=== PATIENT | male | born 1965 | race Caucasian/White ===

== ENCOUNTER 2023-10-03 21:24 | Emergency (ER) | payer BC, SELFPAY ==
[2023-10-03 21:26] VITALS: BP 122/77; PULSE 77; RESP 17; TEMP 36.7; O2SAT 99; BMI 22.2
--- NOTE | 2023-10-03 21:28 | HMH.EDGENADL ---
Discharge Plan Disposition Patient Disposition: Home, Self-Care Condition: Good Referrals Follow up/Referrals: Jeff Valverde MD [Staff Physician] - See instructions Provider,MD Natalie [Primary Care Provider] - See instructions Activity Restrictions/Add. Instructions Additional Instructions/Restrictions: Call in the morning and make appointment with Dr. Valverde of general surgery for evaluation of your right inguinal hernia. Return to the ER for any worsening signs or symptoms. Clinical Impressions Clinical Impression: Inguinal hernia of right side without obstruction or gangrene Instructions Patient Instructions: DI for Acute Abdominal Pain Discharge ED Provider: Segundo Canada General Adult HPI <CHARLEY Azul - Last Filed: 10/03/23 22:05> General Chief complaint: Abdominal Pain Stated complaint: poss hernia, lower abd Time Seen by Provider: 10/03/23 21:28 History of Present Illness HPI narrative: Patient presents for evaluation of a known right inguinal hernia. Patient states that it has been painful over the last few days however it is been there for about 4 months. Patient reports that he still is passing stool and flatus and has able to eat without difficulty. Patient denies chest pain fever chills hemoptysis hematochezia melena nausea vomiting diarrhea. Related Data Allergies Allergy/AdvReac Type Severity Reaction Status Date / Time No Known Allergies Allergy Verified 10/03/23 21:50 PFS <CHARLEY Azul - Last Filed: 10/03/23 22:05> [facility] Disclaimer: The information contained in this section may have been updated after the patient was seen, as this information can be updated by other users. Social History (Updated 10/03/23 @ 22:05 by CHARLEY Azul) Smoking Status: Current every day smoker alcohol intake: current current occupational status: unemployed Travel in the last 8 weeks: None <CHARLEY Azul - Last Filed: 10/03/23 22:05> ROS Obtained: Yes Systems reviewed as appropriate & no additional complaints except as documented Physical Exam <CHARLEY Azul - Last Filed: 10/03/23 22:05> General General appearance: alert and in no apparent distress Head Head exam: atraumatic and normal inspection Eye Eye exam: Present normal appearance and PERRL ENT ENT exam: Present normal exam and normal oropharynx Neck Neck exam: Present normal inspection and full ROM; Absent lymphadenopathy Chest Chest inspection: Present normal inspection and symmetric chest wall rise Respiratory Respiratory exam: Present normal lung sounds bilaterally; Absent respiratory distress Cardiovascular Cardiovascular exam: Present regular rate, normal rhythm and normal heart sounds Abdominal Exam Abdominal exam: Present soft and normal bowel sounds; Absent tenderness, guarding or rebound Expanded Exam exam: Present inguinal hernia (Right inguinal) Extremities Exam Extremities exam: Present normal inspection and full ROM Neurological Exam Neurological exam: Present alert and oriented X3 Psychiatric Psychiatric exam: Present normal affect and normal mood Skin Skin exam: Present warm and dry Medical Decision Making <CHARLEY Azul - Last Filed: 10/03/23 22:05> Medical Records Medical records reviewed: Yes I reviewed the patient's medical records. Michael Inquiry Pt receiving controlled substance: No Vital Signs: 10/03/23 21:26 10/03/23 22:14 Temperature 98.1 F 98.0 F Temperature Source Oral Oral Pulse Rate 71 Pulse Rate [Left Radial] 77 Respiratory Rate 17 18 Blood Pressure 120/75 Blood Pressure [Right Arm] 122/77 Blood Pressure Mean [Right Arm] 92 Blood Pressure Source Automatic Cuff Blood Pressure Source [Right Arm] Automatic Cuff Blood Pressure Position Sitting Blood Pressure Position [Right Arm] Sitting 02 Sat by Pulse Oximetry 99 Oxygen Delivery Method Room Air Room Air Orders (Tests/Meds): ED MEDICATIONS Discontinued Medications Generic Name Dose Route Start Last Admin Trade Name Freq PRN Reason Stop Dose Admin Ketorolac Tromethamine 60 mg 10/03/23 21:48 10/03/23 21:56 Ketorolac 30mg/Ml Vial IM 10/03/23 21:49 Not Given ONCE ONE Medical Decision Narrative: In summary patient is a 8-year-old male who presents to the emergency department for evaluation of right inguinal hernia. Patient is hemodynamically stable upon arrival, afebrile. Physical exam shows a right inguinal hernia with a loop of small bowel extending down into the right side of the scrotum. Differential diagnosis includes sliding inguinal hernia versus incarcerated inguinal hernia. Initial interventions include placing the patient in Trendelenburg and then I manipulated the loop of bowel back into the abdominal cavity. Upon repeat evaluation after 10 minutes in Trendelenburg had the patient Valsalva and loop of bowel remained in the abdominal cavity. Given this patient is appropriate for discharge with a referral to general surgery for evaluation of definitive repair. Patient verbalized understanding and agreement <Segundo Canada MD - Last Filed: 10/04/23 23:05> Vital Signs: 10/03/23 21:26 10/03/23 22:14 Temperature 98.1 F 98.0 F Temperature Source Oral Oral Pulse Rate 71 Pulse Rate [Left Radial] 77 Respiratory Rate 17 18 Blood Pressure 120/75 Blood Pressure [Right Arm] 122/77 Blood Pressure Mean [Right Arm] 92 Blood Pressure Source Automatic Cuff Blood Pressure Source [Right Arm] Automatic Cuff Blood Pressure Position Sitting Blood Pressure Position [Right Arm] Sitting 02 Sat by Pulse Oximetry 99 Oxygen Delivery Method Room Air Room Air Orders (Tests/Meds): ED MEDICATIONS Discontinued Medications Generic Name Dose Route Start Last Admin Trade Name Freq PRN Reason Stop Dose Admin Ketorolac Tromethamine 60 mg 10/03/23 21:48 10/03/23 21:56 Ketorolac 30mg/Ml Vial IM 10/03/23 21:49 Not Given ONCE ONE Medical Decision Narrative: In summary patient is a 58-year-old male who presents to the emergency department for evaluation of right inguinal hernia. Patient is hemodynamically stable upon arrival, afebrile. Physical exam shows a right inguinal hernia with a loop of small bowel extending down into the right side of the scrotum. Differential diagnosis includes sliding inguinal hernia versus incarcerated inguinal hernia. Initial interventions include placing the patient in Trendelenburg and then I manipulated the loop of bowel back into the abdominal cavity. Upon repeat evaluation after 10 minutes in Trendelenburg had the patient Valsalva and loop of bowel remained in the abdominal cavity. Given this patient is appropriate for discharge with a referral to general surgery for evaluation of definitive repair. Patient verbalized understanding and agreement I was consulted by the [facility], and we discussed the complexity of the problems being addressed. I approved the treatment and management plan for this patient?s care in the Emergency Department, thus performing a substantive portion of the medical decision making. Segundo Canada MD Critical Care <CHARLEY Azul - Last Filed: 10/03/23 22:05> Critical Care Time Critical Care Time: No
[2023-10-03 22:14] VITALS: BP 120/75; PULSE 71; RESP 18; TEMP 36.7; O2SAT 99
== END 2023-10-03 22:15 | disposition home or self-care (01) ==
PROVIDERS: Emergency Provider Emergency Medicine
DX: R10.30 Lower abdominal pain, unspecified (principal); K40.90 Unilateral inguinal hernia, without obstruction or gangrene, not specified as recurrent; F17.210 Nicotine dependence, cigarettes, uncomplicated
CPT/HCPCS: 96372; 99283

== ENCOUNTER 2023-10-31 09:48 | Outpatient (CLI) | payer BC, SELFPAY ==
[2023-10-31 09:59] LABS: Microscopic, Urine URINE MICROSCOPIC (MICROSCOPIC)
--- NOTE | 2023-10-31 10:04 | ECG_ITS ---
APPROVED REPORT Exam: Resting ECG HR:60 bpm ECG Measurements Heart Rate 60 AXES OH 180 P 82 QRSd 93 QRS 89 QT 399 T 71 QTc 401 Conclusion SINUS RHYTHM NORMAL ECG UNCONFIRMED REPORT Electronically signed by : Kai Kothari MD 10/31/2023 13:45:38
[2023-10-31 10:21] LABS: Basophils # 0.1 K/mm3 (0-0.2); Basophils % 1.2 % (0.1-2.0); Eosinophils # 0.3 K/mm3 (0.0-0.4); Eosinophils % 4.9 % (0.1-12.0); Hematocrit 50.1 % (42.0-52.0); Lymphocytes % 34.1 % (10-50); Mean Corpuscular HGB Conc 31.9 g/dL (31.8-35.4); Mean Corpuscular Hemoglobin 31.1 pg (27.0-31.2); Mean Corpuscular Volume 97.4 fl (80-94); Mean Platelet Volume 8.8 fl (7.4-10.4); Monocytes # 0.4 K/mm3 (0.1-1.0); Monocytes % 7.1 % (1.7-9.3); Neutrophils # 3.2 K/mm3 (1.8-7.8); Neutrophils % 52.9 % (37.0-80.0); Platelet Count 202 K/mm3 (142-424); Red Blood Count 5.14 M/mm3 (4.60-6.20); Red Cell Distribution Width 13.3 % (11.5-17.5)
[2023-10-31 10:39] LABS: Appearance,Urine CLEAR (Clear); Bilirubin,Urine Negative (Negative); Blood, Urine Negative (Negative); Color,Urine YELLOW (Yellow); Glucose,Urine (UA) Negative (Negative); Ketones,Urine Negative (Negative); Leukocyte Esterase,Urine Negative (Negative); Nitrate,Urine Negative (Negative); PH,Urine 5.5 (5.0-8.5); Protein,Urine Negative (Negative); Specific Gravity, Urine >= 1.030 (1.005-1.030); Urobilinogen,Urine 0.2 EU/dl (0.2)
[2023-10-31 11:00] LABS: Anion Gap 10.3 mEq/L (5-15); Blood Urea Nitrogen 17 mg/dl (9-20); Calcium 9.7 mg/dl (8.4-10.2); Carbon Dioxide 28 mmol/L (22.0-30.0); Chloride 104 mmol/L (98-107); Estimated Glomerular Filt Rate 87 ml/min (>60); GFR (African American) 106 ML/MIN (>60); Glucose 168 mg/dl (74-100); Potassium 4.3 mmoL/L (3.5-5.1); Sodium 138 mmol/L (136-145)
[2023-10-31 12:25] LABS: Squamous Epithelial Cell,Urine Occasional #/hpf (0-5); WBC,Urine Occasional #/hpf (0-3)
== END 2023-10-31 23:59 ==
LOC: LAB 09:49
PROVIDERS: Visit Provider Surgery
DX: Z01.818 Encounter for other preprocedural examination (principal); K40.90 Unilateral inguinal hernia, without obstruction or gangrene, not specified as recurrent
CPT/HCPCS: 36415; 80048; 81001; 85025; 93005

== ENCOUNTER 2023-11-01 09:00 | Day surgery (SDC) | payer BC, SELFPAY ==
[2023-10-31 11:38] VITALS: BMI 21.7
[2023-11-01] VITALS (9 sets, daily range): BP systolic 123–165; BP diastolic 69–98; PULSE 63–77; RESP 14–18; TEMP 36.3–36.7; O2SAT 93–99
[2023-11-01] MEDS: LACTATED RINGERS 1000ML 1,000 ML 25 ML IV (09:06)
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
[2023-11-01] MEDS: CEFAZOLIN SODIUM 1 GM in 0.9 % SODIUM CHLORIDE 50 ML IV (11:00)
[2023-11-01] MEDS: LIDOCAINE 1% 20ML MDV 20 ML (11:13)
--- NOTE | 2023-11-01 12:24 | P.OP_ITS ---
Date of procedure: 11/01/23 Pre-op Diagnosis:: Right inguinal hernia Post-op Diagnosis:: Same Procedure performed:: Open right inguinal hernia repair Surgeon:: Estiven Marshall MD SHOOK MACHINE OPERATOR:: Christina Whaley Anesthesia: GETA Estimated blood loss (mL): 15 Operative findings:: Large indirect defect Operative note:: After informed consent was obtained the patient was taken to the operating room and placed in the supine position. General anesthesia was induced and his lower abdomen and groin/scrotum were prepped and draped in a sterile fashion. After infiltration with local anesthetic an oblique right groin incision was made. Electrocautery was utilized to transect through Tulio's fascia to the level of the external aponeurosis. The external aponeurosis was sharply opened to the level of the external ring. The contents of the canal were carefully elevated. Significant soft tissue stranding noted. The vas deference and vasculature were carefully elevated as the hernia sac was dissected free with a combination of sharp dissection, blunt dissection, and electrocautery. The distal portion of the sac was sharply opened to facilitate dissection. Once dissection was completed the defect was reapproximated with running Vicryl suture. An extra- large PerFix plug was secured in position with interrupted Ethibond. The PerFix overlay was then secured to the shelving edge inferiorly and fascial margin superiorly with interrupted Ethibond. The external aponeurosis was closed with running Vicryl suture. Tulio's fascia was closed in a similar manner. Skin was then reapproximated with running 3-0 Monocryl STRATAFIX. Dressings were applied and the patient's anesthetic agents were reversed prior to extubation and transferred to PACU. Condition: stable Disposition: PACU Specimens:: None Complications:: No immediate
--- NOTE | 2023-11-01 12:29 | EXP.ANES.I ---
[facility] Anesthesia Record Part I Anesthesia Record I Intake, IV Amount: 1,000 Hydration: Adequate Estimated blood loss (mL): 15 Urine output (mL): 0 Blood Pressure: 139/74 SaO2: 97 Pulse Rate: 67 Airway Patency: Patent Respiratory Rate: 15 Temperature: 98 F Patient is:: Drowsy Stable to PACU at:: 12:25
[2023-11-01 12:38] LABS: Microscopic,Cath URINE MICROSCOPIC (MICROSCOPIC)
[2023-11-01] MEDS: MORPHINE 2MG/ML SYRINGE 2 MG IV (12:50)
[2023-11-01 13:03] LABS: Appearance,Urine/Cath CLEAR (Clear); Bilirubin,Cath Negative (Negative); Blood, Urine/Cath Negative (Negative); Color,Urine/Cath YELLOW (Yellow); Glucose,Urine/Cath (UA) Negative (Negative); Ketones,Urine/Cath Negative (Negative); Leukocyte Esterase,Cath Negative (Negative); Nitrate,Cath Negative (Negative); Protein,Urine/Cath Negative (Negative); Specific Gravity, Urine/Cath 1.025 (1.005-1.030); Urobilinogen,Cath 0.2 EU/dl (0.2)
[2023-11-01 13:19] LABS: Squamous Epithelial Ur./Cath Occasional #/hpf (0-5)
--- NOTE | 2023-11-04 14:07 | P.PNANES_ITS ---
[facility] Anesthesia Record Part II Anesthesia Record Part II Discharge Time: 12:55 Destination: Surgical Day Care (OP Surgery) PACU nurse assessment reviewed?: Yes Patient Condition:: Good Anesthesia Complications:: None Swallowing reflex intact?: Yes Airway Patency: Patent Cyanosis?: No Blood Pressure: 123/87 SaO2: 99 Respiratory Rate: 18 Pulse Rate: 73 Temperature: 98 F Mental Status: Alert & Oriented Pain level:: 4 Nausea and/or vomitting:: None Intake, IV Amount: 0 Hydration: Adequate
[2023-11-04 14:08] VITALS: BP 123/87; PULSE 73; RESP 18; TEMP 36.6; O2SAT 99
== END 2023-11-01 13:20 | disposition home or self-care (01) ==
PROVIDERS: Visit Provider Surgery
PROC: (CPT 49505; principal; 2023-11-01 10:30)
DX: K40.90 Unilateral inguinal hernia, without obstruction or gangrene, not specified as recurrent (principal)
CPT/HCPCS: 49505; 81001; 96374; J3490; J0131; J2405